=== PATIENT | female | born 1965 | race Caucasian/White ===

== ENCOUNTER 2023-04-23 18:45 | Emergency (ER) | payer MEDICAID ==
[~2023-04-23] VITALS: Ht 170.2 cm; Wt 65.0 kg
[2023-04-23 18:48] VITALS: BP 108/60; O2SAT 100
[2023-04-23] MEDS ORDERED: SODIUM CHLORIDE 0.9% 1,000 ML IV ONE (20:15)
[2023-04-23 20:24] LABS: BASOPHILS % 0.2 % (0.0-2.0); HEMATOCRIT. 41.1 % (36.0-48.0); HEMOGLOBIN. 13.6 g/dL (12.0-16.0); LYMPHOCYTES % 26.6 % (20.0-50.0); MEAN CORPUSCULAR HEMOGLOBIN 29.9 pg (28.0-32.0); MEAN CORPUSCULAR VOLUME 90.1 fL (81.0-99.0); MEAN PLATELET VOLUME 7.6 fl (7.4-10.4); MONOCYTES % 8.5 % (2.0-8.0); NEUTROPHILS % 64.7 % (40.0-76.0); PLATELET 240 x1000/uL (130-400); RED BLOOD CELL COUNT 4.56 mill/uL (4.2-5.4); RED CELL DISTRIBUTION WIDTH 14.6 % (11.6-14.6)
[2023-04-23 20:34] LABS: CHLORIDE 99 mEq/L (98-107)
[2023-04-23 20:36] LABS: HCG SCREEN NEGATIVE
[2023-04-23 23:39] VITALS: PULSE 100; RESP 16; TEMP 98.2
== END 2023-04-23 23:40 | disposition home or self-care (01) ==
LOC: ER 18:45
DX: M79.10 Myalgia, unspecified site (principal); J02.9 Acute pharyngitis, unspecified; R53.1 Weakness; Z20.822 Contact with and (suspected) exposure to COVID-19
CPT/HCPCS: 80053; 84703; 87430; 85025; 87070; 87804 ×2; 36415; 71045; 96360; 99284; 87426; J7030; C9803; Z7610

== ENCOUNTER 2024-10-24 15:52 | Emergency (ER) | payer MEDICAID ==
[~2024-10-24] VITALS: Ht 165.1 cm; Wt 65.0 kg
[2024-10-24 15:54] VITALS: BP 113/67; PULSE 116; RESP 16; O2SAT 98
[2024-10-24 20:06] VITALS: TEMP 98.1
[2024-10-24] MEDS: ACETAMINOPHEN 325MG TABLET PO ONE (20:06)
[2024-10-24] MEDS ORDERED: ACET-2708 MT (22:42)
== END 2024-10-24 23:14 | disposition home or self-care (01) ==
LOC: ER 15:52
DX: G89.29 Other chronic pain (principal); M06.9 Rheumatoid arthritis, unspecified; Z59.01 Sheltered homelessness
CPT/HCPCS: 99283